=== PATIENT | female | born 1955 | race Asian ===

== ENCOUNTER 2016-11-03 16:17 | Emergency (ER) | payer MEDICAID ==
[~2016-11-03] VITALS: Ht 167.6 cm; Wt 92.1 kg
[2016-11-03 16:17] VITALS: BP_SYST 156
[~2016-11-03 16:17] MED LIST: ALBU8.5H8 INH; BUDE180A3 IH; DOXY100T2 PO; HYDR-1115 PO; LORA10TA7 PO; LOSA50TA3 PO
[2016-11-03] MEDS ORDERED: NACL 0.9% 1,000 ML IV ONE (17:45)
[2016-11-03 18:33] LABS: CALCIUM 9.4 mg/dL (8.4-11.0); CREATININE 1.47 mg/dL (0.55-1.30); POTASSIUM 3.7 mmol/L (3.5-5.1)
[2016-11-03 18:37] LABS: ALBUMIN 3.7 g/dL (3.4-4.8); BASOPHILS % (AUTO) 0.2 % (0.0-2.0); EOSINOPHILS # (AUTO) 0.4 K/uL (0.0-0.4); EOSINOPHILS % (AUTO) 4.8 % (0.0-4.0); HEMATOCRIT 42.5 % (36-48); HEMOGLOBIN 13.9 g/dL (12.0-16.0); LYMPHOCYTES # (AUTO) 1.6 K/uL (1.0-5.5); LYMPHOCYTES % (AUTO) 21.4 % (20.5-51.5); MEAN CORPUSCULAR HEMOGLOBIN 29 pg (27-31); MEAN CORPUSCULAR HGB CONC 33 % (32-36); MEAN CORPUSCULAR VOLUME 88 fL (79.0-98.0); MONOCYTES # (AUTO) 0.4 K/uL (0.0-1.0); MONOCYTES % (AUTO) 5.2 % (1.7-9.3); NEUTROPHILS # (AUTO) 5.3 K/uL (1.8-7.7); NEUTROPHILS % (AUTO) 68.4 % (40.0-70.0); PLATELET COUNT (AUTO) 264 K/uL (130-430); RED BLOOD CELL COUNT(AUTO) 4.82 MIL/uL (4.2-6.2); RED CELL DISTRIBUTION WIDTH 13.1 % (9.0-15.0); TOTAL BILIRUBIN 0.2 mg/dL (0.0-1.0); TOTAL PROTEIN, SERUM 7.9 g/dL (6.4-8.3); WHITE BLOOD COUNT (AUTO) 7.7 K/uL (4.8-10.8)
[2016-11-03] MEDS: ONDANSETRON HCL 4 MG/2 ML VIAL IVP ONE (19:23)
[2016-11-03] MEDS: NACL 0.9% 1,000 ML IV ONE (19:24)
[2016-11-03] MEDS: KETOROLAC TROMETHAMINE 30 MG VIAL IVP ONE (19:24)
[2016-11-03 19:27] LABS: BILIRUBIN,URINE NEGATIVE (NEGATIVE); CLARITY/URINE HAZY (CLEAR); COLOR,URINE YELLOW (YELLOW); GLUCOSE,URINE NEGATIVE (NEGATIVE); KETONES,URINE NEGATIVE (NEGATIVE); LEUKOCYTE ESTERASE ,URINE TRACE (NEGATIVE); NITRITE, URINE NEGATIVE (NEGATIVE); PH,URINE 5.5 (5.0-8.0); PROTEIN URINE NEGATIVE (NEGATIVE); UROBILINOGEN,URINE 0.2 (0.2-1.0)
[2016-11-03 19:49] LABS: BLOOD, URINE TRACE (NEGATIVE)
[2016-11-03 19:56] LABS: BACTERIA,URINE MODERATE /HPF (None Seen)
[2016-11-03 19:57] LABS: MUCUS,URINE 1+ /LPF (None Seen)
[2016-11-03] MEDS: cefTRIAXone 1 GM IVPB PREMIX 50 ML IV ONE (20:00)
[2016-11-03 21:10] VITALS: BP_SYST 156
== END 2016-11-03 21:10 | disposition home or self-care (01) ==
LOC: SED 16:17
DX: N39.0 Urinary tract infection, site not specified (principal); E11.9 Type 2 diabetes mellitus without complications; I10 Essential (primary) hypertension; J44.9 Chronic obstructive pulmonary disease, unspecified; Z91.02 Food additives allergy status; Z91.010 Allergy to peanuts
CPT/HCPCS: 36415; 80053; 81000; 83605; 83690; 85025; 87040; 87086; 93005; 96361; 96365; 96375; 99285; J0696; J1885; J2405; J7030